=== PATIENT | female | born 1970 | race Caucasian/White ===

== ENCOUNTER 2019-03-24 14:59 | Emergency (ER) | payer MEDICAID ==
[~2019-03-24] VITALS: Ht 160 cm; Wt 61.0 kg
[2019-03-24 15:17] VITALS: BP 145/94
== END 2019-03-24 17:08 | disposition home or self-care (01) ==
LOC: ER 15:00 → EDBD 15:00 → ER 17:08
DX: H53.9 Unspecified visual disturbance (principal); R51 Headache; R42 Dizziness and giddiness; R09.89 Other specified symptoms and signs involving the circulatory and respiratory systems; Z87.891 Personal history of nicotine dependence
CPT/HCPCS: 99281